=== PATIENT | male | born 1945 | race Caucasian/White ===

== ENCOUNTER 2024-04-28 07:44 | Emergency (ER) | payer MEDICARE, BC ==
[~2024-04-28] VITALS: Ht 177.8 cm; Wt 89.2 kg
[~2024-04-28 07:44] MED LIST: ASPI-611 PO; LORA1TAB PO; SOTA80TA PO
[2024-04-28 11:26] VITALS: BP 143/72; PULSE 77; RESP 18; TEMP 98.3; O2SAT 96
== END 2024-04-28 11:28 | disposition home or self-care (01) ==
LOC: ER 07:45
DX: S52.592A Other fractures of lower end of left radius, initial encounter for closed fracture (principal); M79.89 Other specified soft tissue disorders; I25.10 Atherosclerotic heart disease of native coronary artery without angina pectoris; Z88.0 Allergy status to penicillin; Z79.82 Long term (current) use of aspirin; W18.39XA Other fall on same level, initial encounter; Y93.89 Activity, other specified; Y92.89 Other specified places as the place of occurrence of the external cause; Y99.8 Other external cause status
CPT/HCPCS: 73110; 73130; 99284; L3908

== ENCOUNTER 2024-11-03 13:44 | Inpatient (IN) | payer MEDICARE, BC ==
[~2024-11-03] VITALS: Ht 180.3 cm; Wt 76.0 kg
[2024-11-03 14:09] LABS: BASOPHILS % (AUTO) 0.6 % (0-1); EOSINOPHILS % (AUTO) 0.6 % (0-6); LYMPHOCYTES # (AUTO) 0.6 X10'3 (1.1-4.8); LYMPHOCYTES % (AUTO) 9.7 % (21-51); MEAN CORPUSCULAR HEMOGLOBIN 23.2 PG (27.0-31.0); MEAN PLATELET VOLUME 7.4 FL (7.4-10.4); MONOCYTES # (AUTO) 0.5 X10'3 (0-0.9); MONOCYTES % (AUTO) 8.8 % (2-12); NEUTROPHILS # (AUTO) 4.8 X10'3 (1.8-7.7); NEUTROPHILS % (AUTO) 80.3 % (42-75); PLATELET COUNT 195 X10'3 (140-440); RED BLOOD COUNT 2.27 X10'6 (4.70-6.10); RED CELL DISTRIBUTION WIDTH 17.8 % (11.5-14.5); WHITE BLOOD COUNT 5.9 X10'3 (4.5-11.0)
[2024-11-03 14:21] LABS: HEMOGLOBIN 5.3 g/dl (14.0-17.9)
[2024-11-03 14:22] LABS: HEMATOCRIT 18.2 % (42.0-52.0)
[2024-11-03 14:26] LABS: ALANINE AMINOTRANSFERASE 16 U/L (12-78); ALBUMIN 3.3 G/DL (3.4-5.0); ALBUMIN/GLOBULIN RATIO 1.1 (1.1-1.5); ALKALINE PHOSPHATASE 61 IU/L (46-116); ANION GAP 10 (8-16); ASPARTATE AMINO TRANSFERASE 9 U/L (10-37); BILIRUBIN,TOTAL 0.9 MG/DL (0.1-1.0); BLOOD UREA NITROGEN 27 MG/DL (7-18); BUN/CREATININE RATIO 20.1 (10.0-20.0); CALCIUM 7.9 MG/DL (8.5-10.1); CHLORIDE 112 MMOL/L (99-107); CREATININE 1.34 MG/DL (0.60-1.10); GLUCOSE 134 MG/DL (70-104); POTASSIUM 3.9 MMOL/L (3.5-5.1); SODIUM 147 MMOL/L (135-145); TOTAL CARBON DIOXIDE 25.3 MMOL/L (24-32); TOTAL PROTEIN 6.2 G/DL (6.4-8.2); eCRCL 49 ML/MIN; eGFR 52 ML/MIN
[2024-11-03 14:34] LABS: PRO BRAIN NATRIURETIC PEPTIDE 858 PG/ML (0-450)
[2024-11-03] MEDS: pantoprazole 40 MG vial IV ONE (15:17)
[2024-11-03 15:39] LABS: INR 1.2 INR; PROTHROMBIN TIME 12.4 SECONDS (9.0-12.0)
[2024-11-03 15:41] LABS: FIBRINOGEN 217 MG/DL (177-424)
[2024-11-03 16:07] LABS: % IRON SATURATION 1 % (11-46); IRON 5 UG/DL (53-167); TOTAL IRON BINDING CAPACITY 355 UG/DL (259-388)
[2024-11-03 16:10] LABS: FERRITIN 7 NG/ML (26-388)
[2024-11-03 16:32] LABS: OCCULT BLOOD STOOL POSITIVE (Neg)
[2024-11-03] MEDS ORDERED: morphine 2 MG/ML inj. syringe IV PRN (16:35)
[2024-11-03] MEDS ORDERED: potassium Cl 20 mEq SR tablet PO PRN (16:35)
[2024-11-03] MEDS ORDERED: mag hydrox/Alum hydrox/simeth 30ml oral suspension PO PRN (16:35)
[2024-11-03] MEDS ORDERED: ondansetron/PF 4mg/2ml inj IV PRN (16:35)
[2024-11-03] MEDS ORDERED: magnesium Cl slow-release 64mg tablet PO PRN (16:35)
[2024-11-03] MEDS ORDERED: magnesium sulf-water 4G/100mL 100 ML IV PRN (16:35)
[2024-11-03] MEDS ORDERED: potassium Cl 40MEQ/1/2NS 520ml 520 ML IV PRN (16:35)
[2024-11-03] MEDS ORDERED: HYDROcodone/acetaminophen 5mg/325mg tablet PO PRN (16:35)
[2024-11-03] MEDS ORDERED: acetaminophen 325mg tablet PO PRN (16:35)
[2024-11-03] MEDS ORDERED: magnesium hydroxide 30ml (MOM) UD suspension PO PRN (16:35)
[2024-11-03] MEDS ORDERED: magnesium sulf-water 2g/50mL 50 ML IV PRN (16:35)
[2024-11-03 16:42] VITALS: BP 132/63; PULSE 84; RESP 16; TEMP 98.3
[2024-11-03 17:00] VITALS: BP 140/75; PULSE 83; RESP 14; TEMP 98.4
[2024-11-03] MEDS: PERFLUTREN PROTEIN-A MICROSPHR (Optison) 0.22 MG/ML 3ML VIAL IV ONE (17:17)
[2024-11-03 17:34] LABS: HEMOGLOBIN A1C 5.9 % (4.5-6.2)
[2024-11-03 18:00] VITALS: BP 136/72; PULSE 84; RESP 18; TEMP 97.8; O2SAT 93
[2024-11-03 19:00] VITALS: BP 138/78; PULSE 90; RESP 18; O2SAT 98
[2024-11-03] MEDS: sotalol HCl 40mg (1/2 tablet) PO SCH (19:54)
[2024-11-03 20:00] VITALS: BP_SYST 113; BP_SYST 118; BP_DIAS 62; PULSE 82; PULSE 85; RESP 11; O2SAT 100
[2024-11-03] MEDS: K and/or MAG REPLACEMENT MC SCH (20:00)
[2024-11-03] MEDS: docusate sod 100mg capsule PO SCH (20:02)
[2024-11-03 20:54] LABS: MEAN CORPUSCULAR HEMOGLOBIN 24.2 PG (27.0-31.0); MEAN CORPUSCULAR HGB CONC 30.1 g/dL (33.0-36.5); MEAN CORPUSCULAR VOLUME 80.2 FL (78-98); MEAN PLATELET VOLUME 7.4 FL (7.4-10.4); PLATELET COUNT 185 X10'3 (140-440); RED CELL DISTRIBUTION WIDTH 17.5 % (11.5-14.5)
[2024-11-03 23:00] VITALS: BP 144/77; PULSE 82; RESP 16; TEMP 97.4; O2SAT 100
[2024-11-04] VITALS (23 sets, daily range): BP systolic 120–168; BP diastolic 59–94; PULSE 72–99; RESP 12–22; TEMP 96.4–99.1; O2SAT 90–98
[2024-11-04] MEDS: normal saline 1000ml 1,000 ML IV SCH (02:35)
[2024-11-04 07:11] LABS: BASOPHILS # (AUTO) 0.1 X10'3 (0-0.2); BASOPHILS % (AUTO) 0.8 % (0-1); EOSINOPHILS # (AUTO) 0.1 X10'3 (0-0.9); EOSINOPHILS % (AUTO) 1.9 % (0-6); HEMATOCRIT 28.2 % (42.0-52.0); HEMOGLOBIN 8.9 g/dl (14.0-17.9); LYMPHOCYTES # (AUTO) 0.8 X10'3 (1.1-4.8); LYMPHOCYTES % (AUTO) 11.4 % (21-51); MEAN CORPUSCULAR HEMOGLOBIN 26.2 PG (27.0-31.0); MEAN CORPUSCULAR HGB CONC 31.6 g/dL (33.0-36.5); MEAN CORPUSCULAR VOLUME 82.9 FL (78-98); MONOCYTES # (AUTO) 0.7 X10'3 (0-0.9); MONOCYTES % (AUTO) 10.1 % (2-12); NEUTROPHILS # (AUTO) 5.3 X10'3 (1.8-7.7); NEUTROPHILS % (AUTO) 75.8 % (42-75); PLATELET COUNT 206 X10'3 (140-440); RED CELL DISTRIBUTION WIDTH 17.4 % (11.5-14.5)
[2024-11-04] MEDS: iron sucrose complex injection 200 MG in normal saline 100ml IV soln 100 ML IV SCH (08:08)
[2024-11-04 08:44] LABS: HEMATOCRIT 27.5 % (42.0-52.0); HEMOGLOBIN 8.7 g/dl (14.0-17.9); MEAN CORPUSCULAR HGB CONC 31.8 g/dL (33.0-36.5); MEAN CORPUSCULAR VOLUME 81.9 FL (78-98); MEAN PLATELET VOLUME 7.6 FL (7.4-10.4); PLATELET COUNT 196 X10'3 (140-440); RED BLOOD COUNT 3.35 X10'6 (4.70-6.10); RED CELL DISTRIBUTION WIDTH 17.3 % (11.5-14.5); WHITE BLOOD COUNT 6.9 X10'3 (4.5-11.0)
[2024-11-04] MEDS: pantoprazole 40 MG vial IV SCH (08:45)
[2024-11-04 08:46] LABS: ALANINE AMINOTRANSFERASE 17 U/L (12-78); ALBUMIN 3.5 G/DL (3.4-5.0); ALBUMIN/GLOBULIN RATIO 1.1 (1.1-1.5); ALKALINE PHOSPHATASE 67 IU/L (46-116); ANION GAP 9 (8-16); ASPARTATE AMINO TRANSFERASE 11 U/L (10-37); BLOOD UREA NITROGEN 23 MG/DL (7-18); BUN/CREATININE RATIO 18.7 (10.0-20.0); CALCIUM 8.2 MG/DL (8.5-10.1); CHLORIDE 111 MMOL/L (99-107); CHOL/HDL RATIO 2.8 (0.00-4.99); CHOLESTEROL 119 MG/DL (0-200); CREATININE 1.23 MG/DL (0.60-1.10); GLUCOSE 102 MG/DL (70-104); HDL CHOLESTEROL 43 MG/DL (35-60); LDL CHOLESTEROL 64 MG/DL (50-100); MAGNESIUM 2.2 MG/DL (1.5-2.4); POTASSIUM 3.8 MMOL/L (3.5-5.1); SODIUM 146 MMOL/L (135-145); TOTAL PROTEIN 6.6 G/DL (6.4-8.2); TRIGLYCERIDES 79 MG/DL (20-135); eCRCL 54 ML/MIN; eGFR 57 ML/MIN
[2024-11-04 08:58] LABS: BLOOD UREA NITROGEN 23 MG/DL (7-18); BUN/CREATININE RATIO 18.1 (10.0-20.0); CREATININE 1.27 MG/DL (0.60-1.10); GLUCOSE 98 MG/DL (70-104); POTASSIUM 4.1 MMOL/L (3.5-5.1); SODIUM 145 MMOL/L (135-145); TOTAL CARBON DIOXIDE 26.1 MMOL/L (24-32)
[2024-11-04 08:59] LABS: ALANINE AMINOTRANSFERASE 15 U/L (12-78); ALBUMIN 3.4 G/DL (3.4-5.0); ALBUMIN/GLOBULIN RATIO 1.2 (1.1-1.5); ALKALINE PHOSPHATASE 65 IU/L (46-116); ASPARTATE AMINO TRANSFERASE 11 U/L (10-37); BILIRUBIN,TOTAL 2.1 MG/DL (0.1-1.0); CALCIUM 8.2 MG/DL (8.5-10.1); TOTAL PROTEIN 6.3 G/DL (6.4-8.2); eCRCL 52 ML/MIN; eGFR 55 ML/MIN
[2024-11-04 09:10] LABS: ANION GAP 8 (8-16); CHLORIDE 111 MMOL/L (99-107)
[2024-11-04] MEDS ORDERED: MIDAZolam 1 MG/ML 5ML VIAL ONE (12:25)
[2024-11-04] MEDS ORDERED: fentaNYL/PF 50MCG/1 ML 2ML syringe ONE (12:25)
[2024-11-04] MEDS ORDERED: LIDOcaine 2% Viscous 15ml cup ONE (12:26)
[2024-11-04] MEDS ORDERED: simethicone 40mg/0.6ml oral drops 30ml ONE (12:30)
[2024-11-04 14:16] LABS: HEMATOCRIT 24.6 % (42.0-52.0); HEMOGLOBIN 7.9 g/dl (14.0-17.9); MEAN CORPUSCULAR HEMOGLOBIN 26.2 PG (27.0-31.0); MEAN CORPUSCULAR HGB CONC 32.1 g/dL (33.0-36.5); MEAN CORPUSCULAR VOLUME 81.6 FL (78-98); MEAN PLATELET VOLUME 7.7 FL (7.4-10.4); PLATELET COUNT 166 X10'3 (140-440); RED BLOOD COUNT 3.01 X10'6 (4.70-6.10); RED CELL DISTRIBUTION WIDTH 17.3 % (11.5-14.5); WHITE BLOOD COUNT 5.7 X10'3 (4.5-11.0)
[2024-11-04] MEDS: PEG 3350/Na sulf,bicarb,Cl/KCl oral sol 4 liter bottle PO ONE (17:27)
[2024-11-04 20:38] LABS: HEMATOCRIT 27.8 % (42.0-52.0); HEMOGLOBIN 8.8 g/dl (14.0-17.9); MEAN CORPUSCULAR HEMOGLOBIN 25.9 PG (27.0-31.0); MEAN CORPUSCULAR HGB CONC 31.7 g/dL (33.0-36.5); MEAN CORPUSCULAR VOLUME 81.9 FL (78-98); MEAN PLATELET VOLUME 7.5 FL (7.4-10.4); PLATELET COUNT 199 X10'3 (140-440); RED BLOOD COUNT 3.39 X10'6 (4.70-6.10); RED CELL DISTRIBUTION WIDTH 17.7 % (11.5-14.5); WHITE BLOOD COUNT 7.3 X10'3 (4.5-11.0)
[2024-11-04] MEDS ORDERED: MECL-302 PO (21:16)
[2024-11-04] MEDS ORDERED: FURO40TA4 PO (21:16)
[2024-11-04] MEDS ORDERED: SACU1TAB PO (21:16)
[2024-11-04] MEDS ORDERED: AMI200T PO (21:16)
[2024-11-04] MEDS ORDERED: POTA-192 PO (21:16)
[2024-11-04] MEDS ORDERED: APIX5TAB3 PO (21:16)
[2024-11-04] MEDS ORDERED: OLAN5TAB5 PO (21:16)
[2024-11-04] MEDS ORDERED: DULO-31 PO (21:16)
[2024-11-04] MEDS: duloxetine 30mg CAPSULE.DR PO SCH (22:25)
[2024-11-04] MEDS: OLANZAPINE 5 MG TABLET PO SCH (22:25)
[2024-11-05] VITALS (15 sets, daily range): BP systolic 118–161; BP diastolic 65–85; PULSE 78–107; RESP 14–20; TEMP 97.3–98; O2SAT 92–97
[2024-11-05 08:11] LABS: EOSINOPHILS # (AUTO) 0.1 X10'3 (0-0.9); HEMOGLOBIN 7.8 g/dl (14.0-17.9); LYMPHOCYTES # (AUTO) 0.5 X10'3 (1.1-4.8); MONOCYTES # (AUTO) 0.7 X10'3 (0-0.9); MONOCYTES % (AUTO) 11.5 % (2-12); NEUTROPHILS # (AUTO) 4.5 X10'3 (1.8-7.7); RED CELL DISTRIBUTION WIDTH 18.1 % (11.5-14.5)
[2024-11-05 08:13] LABS: BASOPHILS % (AUTO) 0.8 % (0-1); EOSINOPHILS % (AUTO) 1.7 % (0-6); HEMATOCRIT 24.6 % (42.0-52.0); LYMPHOCYTES % (AUTO) 9.3 % (21-51); MEAN CORPUSCULAR HEMOGLOBIN 25.6 PG (27.0-31.0); MEAN CORPUSCULAR HGB CONC 31.6 g/dL (33.0-36.5); MEAN CORPUSCULAR VOLUME 81.2 FL (78-98); MEAN PLATELET VOLUME 7.9 FL (7.4-10.4); NEUTROPHILS % (AUTO) 76.7 % (42-75); PLATELET COUNT 174 X10'3 (140-440); RED BLOOD COUNT 3.03 X10'6 (4.70-6.10); WHITE BLOOD COUNT 5.9 X10'3 (4.5-11.0)
[2024-11-05 08:48] LABS: ANION GAP 11 (8-16); BLOOD UREA NITROGEN 21 MG/DL (7-18); BUN/CREATININE RATIO 17.5 (10.0-20.0); CHLORIDE 110 MMOL/L (99-107); GLUCOSE 89 MG/DL (70-104); POTASSIUM 3.4 MMOL/L (3.5-5.1); SODIUM 146 MMOL/L (135-145); TOTAL CARBON DIOXIDE 25.4 MMOL/L (24-32)
[2024-11-05 08:49] LABS: ALANINE AMINOTRANSFERASE 14 U/L (12-78); ALBUMIN 2.9 G/DL (3.4-5.0); ALKALINE PHOSPHATASE 59 IU/L (46-116); ASPARTATE AMINO TRANSFERASE 16 U/L (10-37); BILIRUBIN,TOTAL 2.2 MG/DL (0.1-1.0); CALCIUM 7.9 MG/DL (8.5-10.1); MAGNESIUM 1.9 MG/DL (1.5-2.4); TOTAL PROTEIN 5.7 G/DL (6.4-8.2); eCRCL 55 ML/MIN; eGFR 59 ML/MIN
[2024-11-05 09:22] LABS: TOTAL CELLS COUNTED 100
[2024-11-05] MEDS ORDERED: fentaNYL/PF 50MCG/1 ML 2ML syringe ONE (09:22)
[2024-11-05 09:23] LABS: PLATELET ESTIMATE NORMAL
[2024-11-05] MEDS ORDERED: MIDAZolam 1 MG/ML 5ML VIAL ONE (09:23)
[2024-11-05 11:11] LABS: TRANSFERRIN 299 mg/dL (177-329)
[2024-11-05] MEDS: ringers solution, lacted 1,000 ML IV SCH (13:47)
[2024-11-05] MEDS: potassium Cl 20 mEq SR tablet PO PRN (13:54)
[2024-11-05] MEDS: ciprofloxacin 0.3% 2.5ml ophthalmic solution EACHEYE SCH (13:56)
[2024-11-05 14:34] LABS: HEMATOCRIT 26.6 % (42.0-52.0); HEMOGLOBIN 8.4 g/dl (14.0-17.9); MEAN CORPUSCULAR HEMOGLOBIN 26.1 PG (27.0-31.0); MEAN CORPUSCULAR HGB CONC 31.7 g/dL (33.0-36.5); MEAN CORPUSCULAR VOLUME 82.2 FL (78-98); MEAN PLATELET VOLUME 7.8 FL (7.4-10.4); PLATELET COUNT 176 X10'3 (140-440); RED BLOOD COUNT 3.24 X10'6 (4.70-6.10); RED CELL DISTRIBUTION WIDTH 18.1 % (11.5-14.5); WHITE BLOOD COUNT 6.6 X10'3 (4.5-11.0)
[2024-11-05] MEDS ORDERED: LORazepam 1 MG tablet PO PRN (15:55)
[2024-11-05] MEDS ORDERED: sotalol HCl 40mg (1/2 tablet) PO SCH (20:00)
[2024-11-05 20:25] LABS: HEMATOCRIT 24.3 % (42.0-52.0); HEMOGLOBIN 7.9 g/dl (14.0-17.9); MEAN CORPUSCULAR HEMOGLOBIN 26.3 PG (27.0-31.0); MEAN CORPUSCULAR HGB CONC 32.6 g/dL (33.0-36.5); MEAN CORPUSCULAR VOLUME 80.5 FL (78-98); MEAN PLATELET VOLUME 7.5 FL (7.4-10.4); PLATELET COUNT 180 X10'3 (140-440); RED BLOOD COUNT 3.02 X10'6 (4.70-6.10); RED CELL DISTRIBUTION WIDTH 18.1 % (11.5-14.5); WHITE BLOOD COUNT 6.6 X10'3 (4.5-11.0)
[2024-11-06 02:00] VITALS: BP 135/76; PULSE 88; RESP 18; TEMP 97.6; O2SAT 96
[2024-11-06 06:39] LABS: EOSINOPHILS # (AUTO) 0.2 X10'3 (0-0.9); HEMOGLOBIN 8.3 g/dl (14.0-17.9); MONOCYTES # (AUTO) 0.7 X10'3 (0-0.9); NEUTROPHILS # (AUTO) 4.7 X10'3 (1.8-7.7); RED CELL DISTRIBUTION WIDTH 18.5 % (11.5-14.5); WHITE BLOOD COUNT 6.3 X10'3 (4.5-11.0)
[2024-11-06 06:42] LABS: BASOPHILS # (AUTO) 0.1 X10'3 (0-0.2); EOSINOPHILS % (AUTO) 2.9 % (0-6); HEMATOCRIT 26.3 % (42.0-52.0); LYMPHOCYTES # (AUTO) 0.7 X10'3 (1.1-4.8); LYMPHOCYTES % (AUTO) 10.8 % (21-51); MEAN CORPUSCULAR HEMOGLOBIN 26.3 PG (27.0-31.0); MEAN CORPUSCULAR HGB CONC 31.4 g/dL (33.0-36.5); MEAN CORPUSCULAR VOLUME 83.6 FL (78-98); MEAN PLATELET VOLUME 7.8 FL (7.4-10.4); MONOCYTES % (AUTO) 11.2 % (2-12); NEUTROPHILS % (AUTO) 74.1 % (42-75); PLATELET COUNT 173 X10'3 (140-440); RED BLOOD COUNT 3.15 X10'6 (4.70-6.10)
[2024-11-06 07:08] LABS: ALANINE AMINOTRANSFERASE 10 U/L (12-78); ALBUMIN 2.9 G/DL (3.4-5.0); ALKALINE PHOSPHATASE 59 IU/L (46-116); ANION GAP 10 (8-16); ASPARTATE AMINO TRANSFERASE 20 U/L (10-37); BILIRUBIN,TOTAL 1.9 MG/DL (0.1-1.0); BLOOD UREA NITROGEN 16 MG/DL (7-18); BUN/CREATININE RATIO 12.6 (10.0-20.0); CALCIUM 8.1 MG/DL (8.5-10.1); CHLORIDE 111 MMOL/L (99-107); CREATININE 1.27 MG/DL (0.60-1.10); GLUCOSE 90 MG/DL (70-104); POTASSIUM 3.6 MMOL/L (3.5-5.1); SODIUM 144 MMOL/L (135-145); TOTAL CARBON DIOXIDE 22.8 MMOL/L (24-32); TOTAL PROTEIN 5.9 G/DL (6.4-8.2); eCRCL 52 ML/MIN; eGFR 55 ML/MIN
[2024-11-06] MEDS ORDERED: FERR324T4 PO (07:59)
[2024-11-06] MEDS ORDERED: ASCO100031 PO (07:59)
[2024-11-06 08:00] VITALS: RESP 16; O2SAT 97
[2024-11-06 08:08] LABS: NUCLEATED RED BLOOD CELLS 1 /100WBC (0-0); TOTAL CELLS COUNTED 100
[2024-11-06 08:09] LABS: ANISOCYTOSIS 2+; HYPOCHROMASIA 1+; PLATELET ESTIMATE NORMAL; POLYCHROMASIA FEW
[2024-11-06 08:40] VITALS: BP_SYST 152
[2024-11-06] MEDS ORDERED: CIPR2.5D12 EACHEYE (09:01)
[2024-11-06] MEDS ORDERED: PANT-47 PO (11:23)
== END 2024-11-06 13:47 | disposition home health service (06) | DRG 377 ==
LOC: ER 13:45 → ED HOLD 14:38 → UNDOADMIN 14:38 → ED HOLD 14:39 → PCU 3S 18:02
PROVIDERS: ADMIT Family Medicine; ATTEND Family Medicine
PROC: 30233N1 Transfusion of Nonautologous Red Blood Cells into Peripheral Vein, Percutaneous Approach (ICD-10-PCS; principal; 2024-11-03)
PROC: 0DJ08ZZ Inspection of Upper Intestinal Tract, Via Natural or Artificial Opening Endoscopic (ICD-10-PCS; 2024-11-04)
PROC: 0DJD8ZZ Inspection of Lower Intestinal Tract, Via Natural or Artificial Opening Endoscopic (ICD-10-PCS; 2024-11-05)
DX: K57.31 Diverticulosis of large intestine without perforation or abscess with bleeding (principal); N17.0 Acute kidney failure with tubular necrosis; I48.91 Unspecified atrial fibrillation; I95.1 Orthostatic hypotension; E86.0 Dehydration; I25.10 Atherosclerotic heart disease of native coronary artery without angina pectoris; F32.A Depression, unspecified; K64.1 Second degree hemorrhoids; K44.9 Diaphragmatic hernia without obstruction or gangrene; F41.9 Anxiety disorder, unspecified; D50.9 Iron deficiency anemia, unspecified; Z88.0 Allergy status to penicillin; Z79.899 Other long term (current) drug therapy; Z79.82 Long term (current) use of aspirin
CPT/HCPCS: 36415; 36430; 43235; 45378; 70450; 71045; 73503; 76881; 80053; 80061; 82272; 82607; 82728; 83036; 83540; 83550; 83735; 83880; 84466; 84484; 85007; 85025; 85027; 85384; 85610; 86885; 86900; 86901; 86920; 87081; 92508; 92616; 93005; 93306; 96374; 97161; 97530; 99152; 99285; A4620; A6258; A6446; A6455; G0378; J1756; J2250; J2470; J3010; J7030; J7040; J7120; P9016

== ENCOUNTER 2024-11-20 16:31 | Inpatient (IN) | payer MEDICARE, BC ==
[~2024-11-20] VITALS: Ht 180.3 cm; Wt 81.8 kg
[~2024-11-20 16:31] MED LIST changes: +AMI200T PO; +APIX5TAB3 PO; +ASCO100031 PO; +CIPR2.5D12 EACHEYE; +DULO-31 PO; +FERR324T4 PO; +FURO40TA4 PO; +MECL-302 PO; +OLAN5TAB5 PO; +PANT-47 PO; +POTA-192 PO; +SACU1TAB PO
[2024-11-20 17:49] LABS: BASOPHILS % (AUTO) 1.4 % (0-1); EOSINOPHILS # (AUTO) 0.1 X10'3 (0-0.9); EOSINOPHILS % (AUTO) 2.7 % (0-6); HEMATOCRIT 31.6 % (42.0-52.0); HEMOGLOBIN 9.8 g/dl (14.0-17.9); LYMPHOCYTES # (AUTO) 0.8 X10'3 (1.1-4.8); LYMPHOCYTES % (AUTO) 22.4 % (21-51); MEAN CORPUSCULAR HEMOGLOBIN 27.3 PG (27.0-31.0); MEAN CORPUSCULAR VOLUME 88.1 FL (78-98); MEAN PLATELET VOLUME 7.1 FL (7.4-10.4); MONOCYTES # (AUTO) 0.5 X10'3 (0-0.9); NEUTROPHILS % (AUTO) 59.5 % (42-75); PLATELET COUNT 287 X10'3 (140-440); RED BLOOD COUNT 3.59 X10'6 (4.70-6.10); RED CELL DISTRIBUTION WIDTH 25.9 % (11.5-14.5); WHITE BLOOD COUNT 3.4 X10'3 (4.5-11.0)
[2024-11-20 18:06] LABS: ALANINE AMINOTRANSFERASE 31 U/L (12-78); ALBUMIN 3.4 G/DL (3.4-5.0); ALBUMIN/GLOBULIN RATIO 0.9 (1.1-1.5); ALKALINE PHOSPHATASE 113 IU/L (46-116); ANION GAP 6 (8-16); ASPARTATE AMINO TRANSFERASE 21 U/L (10-37); BILIRUBIN,TOTAL 0.6 MG/DL (0.1-1.0); BLOOD UREA NITROGEN 35 MG/DL (7-18); BUN/CREATININE RATIO 20.2 (10.0-20.0); CALCIUM 8.4 MG/DL (8.5-10.1); CHLORIDE 111 MMOL/L (99-107); CREATININE 1.73 MG/DL (0.60-1.10); GLUCOSE 89 MG/DL (70-104); POTASSIUM 3.7 MMOL/L (3.5-5.1); SODIUM 147 MMOL/L (135-145); eCRCL 38 ML/MIN; eGFR 38 ML/MIN
[2024-11-20 18:51] LABS: ANISOCYTOSIS 3+; HYPOCHROMASIA 1+; PLATELET ESTIMATE NORMAL
[2024-11-20 18:52] LABS: TEAR DROP CELLS FEW
[2024-11-21] MEDS: normal saline 1000ML IV soln IVB ONE (00:32)
[2024-11-21] MEDS ORDERED: acetaminophen 325mg tablet PO PRN (02:20)
[2024-11-21] MEDS ORDERED: potassium Cl 40MEQ/1/2NS 520ml 520 ML IV PRN (02:20)
[2024-11-21] MEDS ORDERED: mag hydrox/Alum hydrox/simeth 30ml oral suspension PO PRN (02:20)
[2024-11-21] MEDS ORDERED: magnesium sulf-water 4G/100mL 100 ML IV PRN (02:20)
[2024-11-21] MEDS ORDERED: ondansetron/PF 4mg/2ml inj IV PRN (02:20)
[2024-11-21] MEDS ORDERED: magnesium Cl slow-release 64mg tablet PO PRN (02:20)
[2024-11-21] MEDS ORDERED: magnesium hydroxide 30ml (MOM) UD suspension PO PRN (02:20)
[2024-11-21] MEDS ORDERED: magnesium sulf-water 2g/50mL 50 ML IV PRN (02:20)
[2024-11-21] MEDS ORDERED: potassium Cl 20 mEq SR tablet PO PRN (02:20)
[2024-11-21] MEDS: normal saline 1000ml 1,000 ML IV SCH (02:29)
[2024-11-21 04:38] LABS: BILIRUBIN,URINE NEGATIVE (Neg); CLARITY,URINE CLEAR (Clear); COLOR,URINE YELLOW (Yellow); GLUCOSE, URINE NEGATIVE (Neg); KETONES,URINE 15 mg/dl (Neg); LEUKOCYTE ESTERASE ,URINE NEGATIVE (Neg); NITRITES, URINE NEGATIVE (Neg); OCCULT BLOOD,URINE NEGATIVE (Neg); PH,URINE 5.5 (4.8-8.0); PROTEIN,URINE TRACE mg/dl (Neg); UROBILINOGEN,URINE 0.2 E.U/dL (0.2-1.0)
[2024-11-21 04:47] LABS: MAGNESIUM 2.2 MG/DL (1.5-2.4); POTASSIUM 3.4 MMOL/L (3.5-5.1)
[2024-11-21 04:51] LABS: UA COLLECTION TYPE CLN CATCH MIDSTREAM
[2024-11-21 04:54] LABS: MUCUS STRANDS MANY /LPF (Neg); SQUAMOUS EPITHELIAL CELL,UR FEW /LPF (FEW)
[2024-11-21 04:55] LABS: BACTERIA,URINE 1+ /HPF (Neg); HYALINE CASTS 0-3 /LPF (NEGATIVE); RBC,URINE NONE SEEN /HPF (0-2); WBC,URINE 0-4 /HPF (0-4)
[2024-11-21 05:06] LABS: SODIUM,URINE RANDOM 60 MEQ/L
[2024-11-21 05:24] LABS: UA EOSINOPHILS NO EOS /HPF
[2024-11-21 05:27] LABS: OSMOLALITY UA 771 MOSM/K (50-1400)
[2024-11-21] MEDS: K and/or MAG REPLACEMENT MC SCH (08:00)
[2024-11-21] MEDS: pantoprazole 40 MG vial IV SCH (09:13)
[2024-11-21] MEDS: potassium Cl 20 mEq SR tablet PO PRN (09:13)
[2024-11-21] MEDS: docusate sod 100mg capsule PO SCH (09:13)
[2024-11-21] MEDS ORDERED: POTA-366 PO (15:09)
[2024-11-21] MEDS ORDERED: DULO60CA65 PO (15:09)
[2024-11-21] MEDS ORDERED: CARV3.122 PO (15:09)
[2024-11-21] MEDS ORDERED: FOLI1TAB27 PO (15:09)
[2024-11-21] MEDS ORDERED: OLAN5TAB75 PO (15:09)
[2024-11-21] MEDS ORDERED: APIX5TAB3 PO (15:09)
[2024-11-21] MEDS ORDERED: SACU1TAB PO (15:09)
[2024-11-21 16:40] VITALS: BP 150/77; PULSE 93; RESP 20; O2SAT 96
[2024-11-21 18:00] VITALS: BP 144/80; PULSE 86; RESP 14; TEMP 98.2; O2SAT 94
[2024-11-21 20:00] VITALS: RESP 16; O2SAT 95
[2024-11-21 22:00] VITALS: BP 144/80; PULSE 87; RESP 16; TEMP 97.5; O2SAT 95
[2024-11-21] MEDS: carVEDilol 3.125mg tablet PO SCH (23:16)
[2024-11-21] MEDS: sacubitril/valsartan 24mg-26mg tablet PO SCH (23:16)
[2024-11-22 02:00] VITALS: BP 133/78; PULSE 82; RESP 16; TEMP 97; O2SAT 95
[2024-11-22] MEDS: normal saline 500ml IV soln 500 ML IV ONE (03:14)
[2024-11-22 06:00] VITALS: BP 143/83; PULSE 83; RESP 16; TEMP 97.4; O2SAT 97
[2024-11-22 06:39] LABS: BASOPHILS # (AUTO) 0.1 X10'3 (0-0.2); BASOPHILS % (AUTO) 1.6 % (0-1); EOSINOPHILS # (AUTO) 0.1 X10'3 (0-0.9); EOSINOPHILS % (AUTO) 2.6 % (0-6); HEMATOCRIT 31.8 % (42.0-52.0); LYMPHOCYTES # (AUTO) 0.9 X10'3 (1.1-4.8); LYMPHOCYTES % (AUTO) 21.8 % (21-51); MEAN CORPUSCULAR HEMOGLOBIN 27.7 PG (27.0-31.0); MEAN CORPUSCULAR HGB CONC 31.5 g/dL (33.0-36.5); MEAN CORPUSCULAR VOLUME 87.8 FL (78-98); MONOCYTES # (AUTO) 0.4 X10'3 (0-0.9); NEUTROPHILS # (AUTO) 2.5 X10'3 (1.8-7.7); PLATELET COUNT 292 X10'3 (140-440); RED BLOOD COUNT 3.62 X10'6 (4.70-6.10); WHITE BLOOD COUNT 3.9 X10'3 (4.5-11.0)
[2024-11-22 06:55] LABS: ALANINE AMINOTRANSFERASE 28 U/L (12-78); ALBUMIN 3.2 G/DL (3.4-5.0); ALBUMIN/GLOBULIN RATIO 0.9 (1.1-1.5); ALKALINE PHOSPHATASE 115 IU/L (46-116); ANION GAP 11 (8-16); ASPARTATE AMINO TRANSFERASE 28 U/L (10-37); BILIRUBIN,TOTAL 0.9 MG/DL (0.1-1.0); BLOOD UREA NITROGEN 23 MG/DL (7-18); BUN/CREATININE RATIO 16.9 (10.0-20.0); CALCIUM 8.3 MG/DL (8.5-10.1); CHLORIDE 112 MMOL/L (99-107); CREATININE 1.36 MG/DL (0.60-1.10); GLUCOSE 91 MG/DL (70-104); POTASSIUM 3.8 MMOL/L (3.5-5.1); SODIUM 147 MMOL/L (135-145); TOTAL PROTEIN 6.7 G/DL (6.4-8.2); eCRCL 48 ML/MIN; eGFR 51 ML/MIN
[2024-11-22] MEDS: amiodarone 200mg tablet PO SCH (09:24)
[2024-11-22 11:00] VITALS: BP 129/71; PULSE 90; RESP 18; TEMP 97.3; O2SAT 98
[2024-11-22 12:58] LABS: ANION GAP 11 (8-16); BLOOD UREA NITROGEN 22 MG/DL (7-18); BUN/CREATININE RATIO 16.2 (10.0-20.0); CHLORIDE 111 MMOL/L (99-107); CREATININE 1.36 MG/DL (0.60-1.10); GLUCOSE 100 MG/DL (70-104); POTASSIUM 3.9 MMOL/L (3.5-5.1); SODIUM 146 MMOL/L (135-145); TOTAL CARBON DIOXIDE 23.9 MMOL/L (24-32); eCRCL 48 ML/MIN; eGFR 51 ML/MIN
[2024-11-22] MEDS ORDERED: DULO-31 PO (13:24)
[2024-11-22] MEDS ORDERED: FURO-150 PO (13:24)
[2024-11-22] MEDS ORDERED: HYDROcodone/acetaminophen 5mg/325mg tablet PO PRN (13:30)
[2024-11-25 12:42] LABS: OCCULT BLOOD STOOL POSITIVE (Neg)
== END 2024-11-22 14:17 | disposition home or self-care (01) | DRG 377 ==
LOC: ER 16:32 → ED HOLD 11-21 00:18 → PCU 3S 11-21 16:14
PROVIDERS: ADMIT Surgery; ATTEND Internal Medicine
DX: K92.1 Melena (principal); N17.0 Acute kidney failure with tubular necrosis; K57.90 Diverticulosis of intestine, part unspecified, without perforation or abscess without bleeding; E86.0 Dehydration; I25.10 Atherosclerotic heart disease of native coronary artery without angina pectoris; I48.91 Unspecified atrial fibrillation; F32.A Depression, unspecified; F41.9 Anxiety disorder, unspecified; I95.9 Hypotension, unspecified; D64.9 Anemia, unspecified; Z79.82 Long term (current) use of aspirin; Z88.0 Allergy status to penicillin; Z79.01 Long term (current) use of anticoagulants; Z79.899 Other long term (current) drug therapy
CPT/HCPCS: 36415; 80048; 80053; 81001; 82272; 83735; 83935; 84132; 84300; 85008; 85025; 87081; 87207; 97161; 97530; 99285; G0378; J2470; J7030; J7040

== ENCOUNTER 2024-11-30 08:56 | Outpatient (CLI) | payer MEDICARE, BC ==
[~2024-11-30 08:56] MED LIST changes: -ASCO100031 PO; -ASPI-611 PO; +CARV3.122 PO; -FERR324T4 PO; +FURO-150 PO; -FURO40TA4 PO; -LORA1TAB PO; -MECL-302 PO; -OLAN5TAB5 PO; +OLAN5TAB75 PO; -PANT-47 PO; -POTA-192 PO; +POTA-366 PO; -SOTA80TA PO
== END 2024-11-30 23:59 | disposition home or self-care (01) ==
LOC: RAD 08:56
PROVIDERS: ATTEND Student in an Organized Health Care Education/Training Program
DX: S22.088A Other fracture of T11-T12 vertebra, initial encounter for closed fracture (principal); M54.50 Low back pain, unspecified; X58.XXXA Exposure to other specified factors, initial encounter; Y93.89 Activity, other specified; Y92.89 Other specified places as the place of occurrence of the external cause; Y99.8 Other external cause status
CPT/HCPCS: 72100

== ENCOUNTER 2025-01-07 09:29 | Day surgery (SDC) | payer MEDICARE, BC ==
[2025-01-06 09:39] LABS: ALBUMIN 3.3 G/DL (3.4-5.0); ANION GAP 7 (8-16); BASOPHILS # (AUTO) 0.1 X10'3 (0-0.2); BASOPHILS % (AUTO) 1.6 % (0-1); BLOOD UREA NITROGEN 28 MG/DL (7-18); BUN/CREATININE RATIO 18.7 (10.0-20.0); CALCIUM 8.1 MG/DL (8.5-10.1); CHLORIDE 110 MMOL/L (99-107); EOSINOPHILS # (AUTO) 0.1 X10'3 (0-0.9); EOSINOPHILS % (AUTO) 2.3 % (0-6); GLUCOSE 182 MG/DL (70-104); HEMATOCRIT 28.2 % (42.0-52.0); LYMPHOCYTES # (AUTO) 0.5 X10'3 (1.1-4.8); MEAN CORPUSCULAR HEMOGLOBIN 27.1 PG (27.0-31.0); MEAN CORPUSCULAR HGB CONC 31.8 g/dL (33.0-36.5); MEAN CORPUSCULAR VOLUME 85.1 FL (78-98); MEAN PLATELET VOLUME 7.2 FL (7.4-10.4); MONOCYTES # (AUTO) 0.3 X10'3 (0-0.9); MONOCYTES % (AUTO) 7.7 % (2-12); NEUTROPHILS # (AUTO) 3.3 X10'3 (1.8-7.7); NEUTROPHILS % (AUTO) 77.4 % (42-75); PLATELET COUNT 218 X10'3 (140-440); RED BLOOD COUNT 3.31 X10'6 (4.70-6.10); RED CELL DISTRIBUTION WIDTH 22.6 % (11.5-14.5); SODIUM 144 MMOL/L (135-145); TOTAL CARBON DIOXIDE 27.2 MMOL/L (24-32); WHITE BLOOD COUNT 4.2 X10'3 (4.5-11.0); eGFR 45 ML/MIN
[2025-01-06 09:43] LABS: INR 1.3 INR; PROTHROMBIN TIME 12.7 SECONDS (9.0-12.0)
[2025-01-06 09:50] LABS: POTASSIUM 3.7 MMOL/L (3.5-5.1)
[2025-01-06 10:17] LABS: ANISOCYTOSIS 3+; PLATELET ESTIMATE NORMAL
[2025-01-07] VITALS (10 sets, daily range): BP systolic 126–146; BP diastolic 70–86; PULSE 62–76; RESP 12–16; TEMP 98.1; O2SAT 94–100
[~2025-01-07] VITALS: Ht 180.3 cm; Wt 79.9 kg
[2025-01-07] MEDS ORDERED: FURO20TA4 PO (09:50)
[2025-01-07] MEDS ORDERED: FERR325T29 PO (09:50)
[2025-01-07] MEDS ORDERED: VITC500T PO (09:50)
[2025-01-07] MEDS ORDERED: DULO30CA52 PO (09:50)
--- NOTE | 2025-01-07 09:51 | ELECTROCARDIOGRAPH REPORT ---
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 Jhonatan Lazcano Measurements Intervals [place] Rate: 79 P: 0 WI: 0 QRS: 6 QRSD: 119 T: 52 QT: 469 QTc: 538 Interpretive Statements Atrial flutter Abnormal R-wave progression, delayed precordial transition Nonspecific intraventricular conduction delay Low voltage, extremity leads Electronically Signed On 01-08-2025 9:43:[address] Jhonatan Lazcano Please click the below link to view image of tracing.
[2025-01-07] MEDS ORDERED: diphenhydrAMINE 25mg capsule PO ONE (10:00)
[2025-01-07] MEDS ORDERED: atropine 0.1mg/ml 10ml syringe IV ONE (10:00)
[2025-01-07] MEDS ORDERED: LORazepam 0.5 MG tablet PO ONE (10:00)
[2025-01-07] MEDS ORDERED: amiodarone 150mg/dext, iso-os 100 ML IV ONE (10:00)
--- NOTE | 2025-01-07 10:51 | ELECTROCARDIOGRAPH REPORT ---
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 Jhonatan Lazcano Measurements Intervals [place] Rate: 61 P: -47 GA: 198 QRS: -17 QRSD: 121 T: 67 QT: 486 QTc: 490 Interpretive Statements Sinus or ectopic atrial rhythm Abnormal R-wave progression, delayed precordial transition Low QRS voltage Atrial premature complex Nonspecific intraventricular conduction delay Electronically Signed On 01-08-2025 9:44:[address] Jhonatan Lazcano Please click the below link to view image of tracing.
[2025-01-07] MEDS: morphine 10mg/ml inj. IV ONE (10:59)
[2025-01-07] MEDS: MIDAZolam 1mg/ml 10ml vial IV ONE (10:59)
[2025-01-07] MEDS: normal saline 1000ml 1,000 ML IV SCH (10:59)
--- NOTE | 2025-01-07 15:15 | CARDIOLOGY REPORT ---
DATE OF SERVICE: 01/07/2025 DICTATING PHYSICIAN: MERCEDEZ Luther MD ELECTRICAL CARDIOVERSION REPORT PRIMARY PHYSICIAN: [facility] [place] [facility]. ZOO VETERINARIAN: MERCEDEZ Luther MD. INDICATIONS: The patient is a 79-year-old male with a history of hypertension, hyperlipidemia, and persistent atrial fibrillation. The patient has echocardiogram on 11/03/2024 showing 55-60% and a PASP of 16 mmHg, moderate aortic regurgitation, mild mitral regurgitation and his 12/31 myocardial scan was negative for ischemia. The patient has history of atrial fibrillation. The patient was noted to be in atrial fibrillation on 08/02. He was started on Carvedilol and Eliquis. The patient was recommended for atrial cardioversion, but he kind of canceled it, but now he is on amiodarone, carvedilol and Eliquis and they mutually agreed to bring him back for cardioversion. Risks and consultative options discussed. Informed consent obtained. The patient also had a hemoglobin of 5.3 on 11/04 requiring PRBC transfusions and is being worked up by Dr. Baez. PROCEDURE: Anterior and posterior patches used. Using biphasic electrical energy 150 joules converted to normal sinus rhythm. The patient remained in normal sinus rhythm. IMPRESSION: A 79-year-old male with persistent atrial fibrillation, converted to normal sinus rhythm. RECOMMENDATIONS: * Reduce amiodarone to 100 mg once a day. * Continue Eliquis 5 mg p.o. b.i.d. * Carvedilol 3.125 mg b.i.d. * Recommend diet, weight loss, and exercise program. patient who is compliant with using CPAP. He has been on CPAP since 11/07/2022. * The patient quit smoking few months ago. MERCEDEZ Luther MD TID: [id number] RECEIPT: [id number] FANNY/LOLA/JOSE CURTIS
== END 2025-01-07 11:45 | disposition home or self-care (01) ==
LOC: SSTAY O 09:29
PROVIDERS: ATTEND Internal Medicine Cardiovascular Disease
DX: I48.19 Other persistent atrial fibrillation (principal); I48.92 Unspecified atrial flutter; I49.1 Atrial premature depolarization; I25.119 Atherosclerotic heart disease of native coronary artery with unspecified angina pectoris; I50.9 Heart failure, unspecified; I42.9 Cardiomyopathy, unspecified; F43.10 Post-traumatic stress disorder, unspecified; Z79.899 Other long term (current) drug therapy; Z98.890 Other specified postprocedural states; Z88.0 Allergy status to penicillin
CPT/HCPCS: 36415; 80048; 85025; 85610; 92960; 93005; J2250; J2270; J7030; 85008; J2274